=== PATIENT | female | born 2000 | race Caucasian/White ===

== ENCOUNTER 2022-05-22 21:51 | Emergency (ER) | payer OTHER ==
[~2022-05-22] VITALS: Ht 157.5 cm; Wt 68.0 kg
[2022-05-22 21:55] VITALS: BP 119/69
--- NOTE | 2022-05-22 21:58 | NUR ---
to lobby a/w bed ambulatory
--- NOTE | 2022-05-23 01:00 | NUR ---
Patient taken to bed 8.
--- NOTE | 2022-05-23 01:25 | NUR ---
21 Y/O F presents with swollen ankle from an mechanical fall xtoday at home with 9/10 pain. pt denies any NVD. pt is A&Ox4, skin intact and pt states she has a headache 10/10. pmh-pt denies NKA
[2022-05-23] MEDS ORDERED: NAPR-54 PO (01:35)
[2022-05-23] MEDS ORDERED: IBUPROFEN 600 MG TAB PO ONE (01:35)
--- NOTE | 2022-05-23 02:53 | NUR ---
Patient discharged with v/s stable. Written and verbal after care instructions given and explained. Patient alert, oriented and verbalized understanding of instructions. Ambulatory with steady gait. All questions addressed prior to discharge. ID band removed. Patient advised to follow up with PMD. Rx of naproxen given. Opportunity to ask questions provided and answered.
--- NOTE | 2022-05-23 03:06 | NUR ---
The patient's care was reviewed and supervised by Indy Fofana RN.
== END 2022-05-23 02:53 | disposition home or self-care (01) ==
LOC: MED 21:51
DX: S93.401A Sprain of unspecified ligament of right ankle, initial encounter (principal); Z79.1 Long term (current) use of non-steroidal anti-inflammatories (NSAID); W01.0XXA Fall on same level from slipping, tripping and stumbling without subsequent striking against object, initial encounter; Y92.89 Other specified places as the place of occurrence of the external cause; Y93.89 Activity, other specified; Y99.0 Civilian activity done for income or pay
CPT/HCPCS: 73610; 81025; 99283